=== PATIENT | female | born 1995 | race Caucasian/White ===

== ENCOUNTER 2017-02-22 21:45 | Emergency (ER) | payer OTHER ==
[~2017-02-22] VITALS: Ht 170.2 cm; Wt 60.0 kg
[2017-02-22] MEDS ORDERED: morphine 4 MG/ML VIAL IM STA (21:47)
[2017-02-22 21:52] VITALS: Ht 170.2 cm; Wt 60.0 kg
[2017-02-22] MEDS ORDERED: LIDOCAINE 2% (MDV) 20 ML INJ INJ ONE (22:00)
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
--- NOTE | 2017-02-22 22:56 | RADRPT ---
PROCEDURE: CT Cervical Spine without contrast. CLINICAL INDICATION: Trauma. TECHNIQUE: The study was performed on a multislice multidetector CT scanner. Spiral axial 1 mm im ages were obtained through the cervical spine and reformatted at 2.5 mm slice thickness without cont rast. 1 or more of the following dose reduction techniques were utilized: Automated exposure contr ol, adjustment of the mA and/or kV according to patient's size, iterative reconstruction technique. Coronal and sagittal reformations were obtained. The images were reviewed on a PACS workstation. DI COM images are available. RADIATION DOSE: CTDIvol: 22.4 mGyDLP: 633.9 mGy-cm COMPARISON: No prior studies are available for comparison. FINDINGS: There is diffuse straightening the cervical spine without reversal of normal cervical lordosis. The vertebral body heights are maintained. There is no evidence of fracture or dislocation. The marro w density is within normal limits. The intervertebral disc spaces appear normal. The cervical canal is unremarkable. There is a no bone destruction or sclerosis. The paraspinal soft tissues are unrema rkable. No significant paraspinal soft tissue swelling. C2-3: The posterior margin of the disc, thecal sac and neural foramina are normal in appearance. C3-4: The posterior margin of the disc, thecal sac and neural foramina are normal in appearance. C4-5: The posterior margin of the disc, thecal sac and neural foramina are normal in appearance. C5-6: The posterior margin of the disc, thecal sac and neural foramina are normal in appearance. C6-7: The posterior margin of the disc, thecal sac and neural foramina are normal in appearance. C7-T1: The posterior margin of the disc, thecal sac and neural foramina are normal in appearance. IMPRESSION: 1. No acute abnormality of the cervical spine. No evidence of fracture or dislocation. 2. Straightening of the cervical spine which may be related paraspinal muscle spasm versus position ing. RPTAT: HGAS .John Calles MD, MD Date Time Electronically viewed and signed by .John Calles MD, MD on 02/22/2017 22:56 .S/
--- NOTE | 2017-02-22 23:02 | RADRPT ---
PROCEDURE: CT Maxillofacial without. CLINICAL INDICATION: Trauma. TECHNIQUE: The study was performed utilizing a multi-slice, multidetector CT scanner. Direct spira l 1 mm axial sections were obtained through the head without the use of intravenous contrast materia l. 1 or more of the following dose reduction techniques were utilized: Automated exposure control, adjustment of the mA and/or kV according to patient's size, iterative reconstruction technique. Co bernardo and sagittal reformations were obtained. The images were reviewed on a PACS workstation. DICOM images are available. RADIATION DOSE: CTDIvol: 29.5 mGyDLP: 600.1 mGy-cm COMPARISON: No prior studies are available for comparison. FINDINGS: The right maxilla, bilateral zygomatic arches and ethmoid bones are intact. There are comminuted bi lateral nasal bone fractures, with rightward displacement of the nasal bone fragments. There are mul tiple hyperdensities in the nasal soft tissues, which are nonspecific. This may be related to debris from the patient's trauma. There is a nondisplaced fracture of the nasal spine of the maxilla (axia l series image 127). The bony nasal spine appears intact. There is complete opacification of the lef t maxillary sinus. There is a nondisplaced fracture involving the left medial - inferior orbit and t he superior - medial aspect of the left maxillary sinus (coronal series image 26). Left lateral orbi maría elena wall is intact. The right medial, lateral and inferior orbital certain intact. There is moderate mucosal thickening of the right sphenoid sinus without evidence of basilar skull fracture. The man dible is normal in appearance. Limited visualization of the intracranial contents is normal in appearance. The nasopharynx and oropharynx are normal in appearance. IMPRESSION: 1. Comminuted fractures of the bilateral nasal bones with rightward displacement of the nasal bone fractures. 2. Nondisplaced fracture involving the nasal spine of the maxilla. 3. Nondisplaced fracture involving the left inferior - medial maxillary sinus extending across the superior - medial aspect of the left maxillary sinus. RPTAT: HGAS .John aClles MD, MD Date Time Electronically viewed and signed by .John Calles MD, on 02/22/2017 23:02 .S/
[2017-02-22] MEDS ORDERED: ONDANSETRON 4 MG INJ IV STA (23:06)
[2017-02-22] MEDS ORDERED: morphine 4 MG/ML VIAL IV STA (23:06)
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
[2017-02-23 00:41] VITALS: BP 130/71; PULSE 78; RESP 16; TEMP 98.7
== END 2017-02-23 00:42 | disposition short-term general hospital (02) ==
LOC: E/R 21:45
DX: S01.21XA Laceration without foreign body of nose, initial encounter (principal); V47.5XXA Car driver injured in collision with fixed or stationary object in traffic accident, initial encounter
CPT/HCPCS: 12013; 70450; 70486; 72125; 96374; 99291; J2270